=== PATIENT | female | born 1965 | race Hispanic/Latino ===

== ENCOUNTER → 2022-06-21 | Outpatient (CLI) | payer OTHER | END | disposition home or self-care (01) | LOC: RAH 13:19 | PROVIDERS: ATTEND Internal Medicine | DX: I10 Essential (primary) hypertension (principal); R06.02 Shortness of breath; M34.9 Systemic sclerosis, unspecified | CPT/HCPCS: 71250; 93306 ==

== ENCOUNTER → 2025-02-09 | Outpatient (CLI) | payer OTHER ==
--- NOTE | 2025-02-09 16:11 | HMCIMG ---
CT chest without contrast FINDINGS: The examination demonstrates interstitial tissue prominence resulting in reticulation, more prominent throughout the lung bases, mostly subpleural in location. There is evidence of traction bronchiectasis mostly involving the central and basal portions of both lungs. The subpleural predominance of disease results in honeycomb pattern. No groundglass opacities are seen. There is no evidence of associated air-trapping. There is mild prominence of two mediastinal lymph nodes, anterior to the trachea, measuring 9 and 10 mm in short axis diameter respectively. The pulmonary arteries appear enlarged bilaterally suggestive of concomitant or underlying pulmonary arterial hypertension. Normal airspace disease is identified to suggest either neoplasm or pneumonia at this time. The abdominal views are unremarkable. The bony evaluation shows no worrisome lesions. Impression: Findings consistent with the diagnosis of idiopathic pulmonary fibrosis.
== END | disposition home or self-care (01) ==
LOC: RAH 14:23
PROVIDERS: ATTEND Internal Medicine
DX: J47.9 Bronchiectasis, uncomplicated (principal); J64 Unspecified pneumoconiosis; J84.10 Pulmonary fibrosis, unspecified
CPT/HCPCS: 71250

== ENCOUNTER → 2025-02-13 | Outpatient (CLI) | payer OTHER ==
--- NOTE | 2025-02-13 20:03 | HMCSR ---
APPROVED REPORT EXAM: Two-dimensional and M-mode echocardiogram with Doppler and color Doppler. INDICATION ICD: M54.6 M34.9 2D Dimensions RVDd3.3 cmLVEF(%)62.6 (>50%)LVED Vol(simp.)54.0 mL IVSd0.8 (0.7-1.1cm)FS(%)33 %LVES Vol(simp.)24.0 mL LVDd3.6 (3.8-5.6cm)LA (2D)3.1 (1.6-4.0cm)LVEF(%, simp.)55 % PWd1.0 (0.7-1.1cm)Ao Root(2D)2.7 (2.0-3.7cm)LA ESV INDEX (BP)32.40 mL/m2 LVDs2.4 (2.5-4.0cm)LVOT diam1.6 (1.8-2.4cm) IVC diam1.0 cm M-Mode Dimensions EPSS0.5 cm LA (MM)3.4 (1.6-4.0cm) Ao Root(MM)2.9 (2.0-3.7cm) Aortic Valve AoV Vmax1.3 m/Praveen Peak GR6.6 mmHgLVOT Vmax0.9 m/s AoV VTI0.3 mAo Mean GR3.5 mmHgLVOT VTI0.18 m PRIYANKA (VMAX)1.40 cm2AVA (VTI) 1.4 cm2 Mitral Valve MV E Mggn544.0 cm/sDECEL Ykeb895 ms MV A Xgcc083.2 cm/sP 1/2 T73 ms E/A ratio0.9MVA (PHT)3.0 cm2 TDI E/E' Zjwltw86.1E/E' Albjdes91.0 Medial E' Peak V7.40 cm/sLateral E' Peak V10.44 cm/s Pulmonary Valve PV Vmax0.8 m/sPV VTI0.16 mPV Mean GR1.5 mmHg PV Peak GR2.7 mmHg Tricuspid Valve TR Vmax2.8 m/sRVSP28.8 mmHg TR Peak GR32.8 mmHg Left Ventricle The left ventricle is normal size. There is normal left ventricular wall thickness. LVEF is 50-55%. T he left ventricular diastolic function is normal. Right Ventricle The right ventricle is normal size. The right ventricular systolic function is normal. Atria The left atrium size is normal. The right atrium size is normal. Aortic Valve The aortic valve is normal in structure. No aortic regurgitation is present. There is no aortic valvu lar stenosis. Mitral Valve The mitral valve is normal in structure. Mild mitral annular calcification present. Mitral regurgitat ion is mild. There is no mitral valve stenosis. Tricuspid Valve The tricuspid valve is normal in structure. There is mild tricuspid valve regurgitation noted. Pulmonic Valve The pulmonary valve is normal in structure. There is no pulmonic valvular regurgitation. Great Vessels The aortic root is normal in size. The IVC is normal in size and collapses >50% with inspiration. Pericardium There is no pericardial effusion. Conclusion The left ventricle is normal size. LVEF is 50-55%. The left ventricular diastolic function is normal. The right ventricle is normal size. The right ventricular systolic function is normal. The left atrium size is normal. The right atrium size is normal. Mitral regurgitation is mild. There is mild tricuspid valve regurgitation noted. There is no pericardial effusion.
== END | disposition home or self-care (01) ==
LOC: RAH 11:39
PROVIDERS: ATTEND Internal Medicine
DX: I08.1 Rheumatic disorders of both mitral and tricuspid valves (principal); J84.10 Pulmonary fibrosis, unspecified; M54.6 Pain in thoracic spine; M34.9 Systemic sclerosis, unspecified
CPT/HCPCS: 93306